=== PATIENT | male | born 1940 | race Caucasian/White ===

== ENCOUNTER 2016-12-27 13:37 | Day surgery (SDC) | payer MEDICARE ==
[~2016-12-27] VITALS: Ht 172.7 cm; Wt 82.1 kg
[2016-12-27] VITALS (9 sets, daily range): BP systolic 118–151; BP diastolic 58–66; PULSE 71–79; RESP 14–21; O2SAT 92–100
[~2016-12-27 13:37] MED LIST: CIPR-231 PO; Gentamicin Inj 400 MG in Dextrose 5% 100 ML IV SCH; HYDR-4003 PO; IBUP800T28 PO; Lactated Ringer's 1,000 ML IV SCH
[2016-12-27] MEDS ORDERED: Lidocaine PF 1% 30 mL Inj ONE (13:38)
[2016-12-27] MEDS ORDERED: fentaNYL-PF 50 mCg/mL 2 mL Inj ONE (13:38)
[2016-12-27] MEDS ORDERED: Propofol 10,000 mCg/mL 20 mL Inj ONE (13:38)
[2016-12-27] MEDS ORDERED: Lactated Ringer's 500 ML IV PRN (14:49)
[2016-12-27] MEDS ORDERED: Lactated Ringer's 1,000 ML IV SCH (14:49)
--- NOTE | 2016-12-27 14:49 | PCM.HPANE ---
Patient Data Date of Service: Dec 27, 2016 Surgeon Admitting Provider: Attending Provider:Fely Washington MD Primary Care Physician:Armando Alanis MD Other Provider:Manuel Norton Anesthesia Reason for Visit Nocturia, Left Hydronephrosis Ht/WT & BMI Height (Feet): 5 Height (Inches): 8 Weight (Kilograms): 82.1 Body Mass Index 27.00 Allergies Coded Allergies: No Known Allergies (Unverified , 12/26/16) Past Anesthesia History Anesthesia History: Denies:: Anesthesia Reactions, Fam Anesthesia Reaction, Fam Malignant Hypertherm, Malignant Hyperthermia Diabetes History Hx Diabetes?: No Current Bedside Blood Glucose: 103 MRSA MRSA: No Medications Hypertension Medication: No Home Meds Incl Beta Dena: No Reported Medications Hydrocodone-Acetaminophen 5-325 mg 1 Each Tablet1 Tablet PO Q4H PRN For Pain Ref 0 12/26/16 Ciprofloxacin (Cipro)500 Mg [id number] Mg PO BID Ref 0 12/26/16 Ibuprofen 800 Mg [id number] Mg PO TID PRN For Pain Ref 0 12/26/16 History History of ENT Problems?: Yes HEENT History: Positive for:: Cataracts (s/p extractions) Sinus Problem (SEASONAL ALLERGIES) Denture Type: None Teeth Condition: Within Normal Limits Hx of Heart Problems?: Yes Cardiovascular History: Positive for:: Edema (LE EDEMA) Denies:: Heart Murmur Hypertension Hx of Respiratory Problem?: No Respiratory History: Denies:: Use of C-PAP Machine Hx Neurologic Problems?: No Hx of GI Problems?: Yes Other GI Pertinent History: C/OF ABD PAIN & CONSTIPATION Hx of Problems?: Yes Other Pertinent History: C/OF LT FLANK PAIN,DECREASED STREAM,INFREQUENCY NOCTURIA/LT HYDRONEPHROSIS=CURRENT PROBLEM Male Hx: Positive for:: Prostate Problems (PROSTATE NODULE, ELEVATED PSA) Denies:: Scrotal Mass Testicular Surgery Skin History: Denies:: History Skin Disorders? Pressure Ulcers Hx Musculoskeletal Problems?: Yes Musculoskeletal History: Positive for:: Degenerative Joint (THUMBS) Musculoskeletal Trauma (s/p foot rpr's) Osteoarthritis Hx of Psycho/Social Problems?: No Hx Surgeries?: Yes (CATARACTS) Hx Any Other Health Problems?: Yes Other History: Positive for:: Cancer (SUSPECT PROSTATE) Denies:: Endocrine Disease Hospitalization Thyroid Disease Hx Diabetes: NoBedside Blood Glucose: 103 Hx Alcohol Use: Yes (OCCAS)Hx Substance Use: NoHave You Smoked inLast 12 mo: No Stop/Bang Treated for Sleep Apnea?: No Do You Have a CPAP Machine?: No S-Snoring: Do You Snore Loudly: No T-Tired: feel tired, fatigued: No O-Obsered: Observed not breath: No P-Blood Pressure: treated: No B- Body Mass Index > 35 kg/m2: No A- Age over 50: Yes N- Neck Large Circumference: No G- Gender Male: Yes RACIEL Total Score: 2 RACIEL Risk Assessment: Low Risk, <3 Yes Risk Assessment Category Category 1A: Patient has history of documented sleep apnea, and HAS NOT received any narcotic, sedative or anesthesia administration during this stay. Category 1B: Patient has history of documented sleep apnea, and HAS received any narcotic , sedative or anesthesia administration during this stay Category 2: Patient has SUSPECTED Obstructive Sleep Apnea, and HAS received any narcotic , sedative or anesthesia administration during this stay. Category 3: Patient has SUSPECTED Obstructive Sleep Apnea and HAS NOT received narcotic, sedative or anesthesia administration during this stay. Category 4: Outpatient in Procedural Areas with known sleep apnea or who screen positive for High Risk via the STOP/BANG questionnaire. Exam Exam Vital Signs Vital Signs Date Time Temp Pulse Resp B/P Pulse Ox O2 Delivery O2 Flow Rate FiO2 12/27/16 14:28 37.7 79 16 151/66 96 Room Air General Appearance: Alert, Oriented X3, Cooperative HEENT/AIRWAY: MP 3, Neck Movement (Full) Lungs: Clear to Auscultation, Normal Air Movement Heart: Regular Rate/Rhythm, Normal S1, Normal S2 Meds/Labs/Diagnostics Bedside Blood Glucose: 103 Plan Impression Patient chart reviewed, patient interviewed and anesthestic plan with risks, benefits, and alternatives discussed, and informed consent obtained. NPO per Anesth. Guidelines: Yes ASA Physical Status: ASA3 Severe Disease Anesthetic Plan: MAC Bene/Risks/Altern/Consents: Yes HP Complete Prior to Induction: Yes Torsten Stern MD Dec 27, 2016 14:48
[2016-12-27] MEDS ORDERED: MetoCLOpramide 5 mg/mL 2 mL Inj IVPUSH PRN (14:50)
[2016-12-27] MEDS ORDERED: HYDROmorphone 1 mg/mL Inj IVPUSH PRN (14:50)
[2016-12-27] MEDS ORDERED: Ondansetron 2 mg/mL 2 mL Inj IVPUSH PRN (14:50)
[2016-12-27] MEDS ORDERED: EPHEDrine Sulfate 50 mg/mL Inj IVPUSH PRN (14:50)
[2016-12-27] MEDS ORDERED: fentaNYL-PF 50 mCg/mL 2 mL Inj IVPUSH PRN (14:50)
[2016-12-27] MEDS ORDERED: Dexamethasone 4 mg/mL Inj IVPUSH PRN (14:50)
[2016-12-27] MEDS ORDERED: Phenylephrine 10,000 mCg/mL Inj IVPUSH PRN (14:50)
[2016-12-27] MEDS ORDERED: Lactated Ringer's 1,000 ML IV ONE (14:51)
[2016-12-27] MEDS ORDERED: oxyCODONE-Acetamin 5-325 mg Tablet PO PRN (15:55)
--- NOTE | 2016-12-27 17:01 | OP ---
[address] [address] OPERATIVE REPORT PATIENT: DEJA BARLOW : 1940 MR#: [id number] ADMIT: 12/27/2016 JOB ID: [id number] DATE OF SURGERY: 12/27/2016 PREOPERATIVE DIAGNOSIS(ES): 1. Elevated PSA. 2. Retroperitoneal lymphadenopathy. 3. Left mild hydronephrosis. POSTOPERATIVE DIAGNOSIS(ES): 1. Elevated PSA. 2. Retroperitoneal lymphadenopathy. 3. Left mild hydronephrosis. 4. Left ureterocele. PROCEDURE PERFORMED: 1. Transrectal ultrasound-guided prostate needle biopsy. 2. Cystoscopy and left retrograde pyelogram. SURGEON: Fely Washington MD. SHEAR HELPER: None. FINDINGS: 1. Firm and fixed prostate on rectal exam. 2. Heterogeneous prostate on transrectal ultrasound of the prostate. 3. Left ureterocele. ANESTHESIA: Monitored anesthesia care. ESTIMATED BLOOD LOSS: Less than 2 mL. DRAINS: None. SPECIMENS: Prostate biopsies. COMPLICATIONS: None. CONDITION: Stable. INDICATION FOR PROCEDURE: The patient is a 76-year-old gentleman who was found to have a PSA of 50. CT scan revealed retroperitoneal lymphadenopathy and mild hydronephrosis on the left side. He now presents for the aforementioned procedure. DESCRIPTION OF PROCEDURE: After informed consent was obtained, the patient was taken to the operating room. A time-out was performed identifying correct patient, surgical site, and procedure. The patient was placed under monitored anesthesia care and in the left lateral decubitus position. Transrectal ultrasound-guided prostate needle biopsy commenced after digital rectal exam was performed. The findings were aforementioned. Prostate needle biopsies were taken, one core each for the left and right, mid, apex, and base of gland. These were sent off to Pathology as prostate biopsies. The patient appeared to tolerate the procedure well and there was very little bleeding. The patient was then positioned on the operating table in the lithotomy position. All pressure points were identified and appropriately padded. His genitals were then prepped and draped in the usual sterile fashion. A 22-Gambian rigid cystoscope was applied to the patient's urethra and advanced into the bladder. The bladder was drained. The bladder was systematically inspected. Immediately upon entering the bladder there was seen a bulbous appearing lesion. Upon further inspection, this appeared to be a left ureterocele. Along the medial aspect of this mound there was a ureteral orifice. It was cannulated with a 5-Gambian open-ended Pollack catheter. A retrograde pyelogram was performed. It verified filling of the ureterocele and the ureter and kidney. There was mild hydronephrosis. It was attempted to cannulate the Pollack catheter with a Sensor-Tip wire but it could not be advanced much beyond the ureterocele. Multiple attempts even without the Pollack were unsuccessful. A Glidewire was then exchanged for the Sensor-Tip wire and this was attempted to cannulate the ureter with the Pollack and without it as well but every maneuver was not successful in order to place a stent so these efforts were abandoned. The Pollack was removed. The cystoscope was used to drain the bladder and the instruments were removed from the patient's body. The patient was then taken to the PACU in good and stable condition. VIRGINIE
--- NOTE | 2016-12-27 17:08 | PCM.ANEP1 ---
Post Anesthesia PACU Phase 1 Assessment Date of Service: Dec 27, 2016 Vital Signs Vital Signs Date Time Temp Pulse Resp B/P Pulse Ox O2 Delivery O2 Flow Rate FiO2 12/27/16 17:00 36.6 77 14 145/63 94 Room Air 12/27/16 16:00 37.1 72 20 130/64 94 Room Air 12/27/16 15:55 78 20 132/61 92 Room Air 12/27/16 15:54 73 20 131/65 93 Room Air 12/27/16 15:45 71 21 128/64 100 Simple Mask 10 12/27/16 15:40 73 18 119/62 100 Simple Mask 10 12/27/16 15:35 74 18 122/58 100 Simple Mask 10 12/27/16 15:33 37.1 77 19 118/63 100 Simple Mask 10 12/27/16 14:28 37.7 79 16 151/66 96 Room Air Anesthetic Administered: MAC Level of Alertness: Awake, talking MARTINEZ's with Equal Strength: Yes Pain: No Nausea or Vomiting: No CV Function & Hydration Stable: Yes Airway Device: Oxygen Delivery: Room Air Lungs: Normal Air Movement PACU Phase 2 Assessment Complications: No Follow up Care: No Patient Instructions Provided: N/A Torsten Stern MD Dec 27, 2016 17:08
--- NOTE | 2016-12-28 09:36 | DRSVH ---
PROCEDURE: X-RAY RETROGRADE UROGRAPHY INDICATIONS: CYSTO LEFT RETROGRADE TECHNIQUE: 1 intra-operative images acquired by the Urology service. COMPARISON: Outside Film, CT, CT ABD PELVIS W CON, 12/19/2016, 9:09. FINDINGS: Exam limited to one submitted image. Within the limits, there is a short segment distal l eft ureteral stricture measuring roughly 3-4 cm in length which appears mildly irregular. The adjace nt distal and proximal ureter appears grossly normal. No extravasation of contrast media. IMPRESSION: Short segment high-grade distal ureteral stricture which is irregular. Neoplastic strict ure cannot be excluded. Dictated by: Napoleon CHIU Interpreted: Ria Boucher MD on 12/27/2016 at 15:56 Approved by: Ria Boucher M.D. on 12/28/2016 at 9:34
--- NOTE | 2016-12-28 16:17 | PATH ---
SURGICAL PATHOLOGY Attending Physician:Fely Washington, CASE STATUS: Signed Out PATIENT NAME: DEJA BARLOW PID: [id number] : 1940 DATE COLLECTED:12/27/2016 23:48 SPECIMEN: 1: Prostate, Right Bartlett 2: Prostate, Right Mid 3: Prostate, Right Base 4: Prostate, Left Bartlett 5: Prostate, Left Mid 6: Prostate, Left Base CLINICAL HISTORY: ELEVATED PSA 1). RIGHT APEX 2). RIGHT MID 3). RIGHT BASE 4) LEFT APEX 5). LEFT MID 6). LEFT BASE FINAL DIAGNOSIS: 1.PROSTATE NEEDLE BIOPSY, RIGHT APEX: HISTOLOGIC TYPE: ADENOCARCINOMA. HISTOLOGIC GRADE: DOMO PRIMARY PATTERN: 3 WORST REMAINING PATTERN: 4 DOMO SCORE: 7 GRADE GROUP: 2 PERCENTAGE OF DOMO PATTERN 4: 50% TUMOR QUANTITATION: NUMBER OF CORES POSITIVE: 1 TOTAL NUMBER OF CORES: 2 PERCENTAGE OF PROSTATIC TISSUE INVOLVED BY TUMOR: 29% 2. PROSTATE NEEDLE BIOPSY, RIGHT MID: HISTOLOGIC TYPE: ADENOCARCINOMA HISTOLOGIC GRADE: DOMO PRIMARY PATTERN: 3 WORST REMAINING PATTERN: 5 DOMO SCORE: 8 GRADE GROUP: 4 PERCENTAGE OF ODMO PATTERN 5: 50% TUMOR QUANTITATION: NUMBER OF CORES POSITIVE: 1 TOTAL NUMBER OF CORES: 2 PERCENTAGE OF PROSTATIC TISSUE INVOLVED BY TUMOR: 45% 3.PROSTATE NEEDLE BIOPSY, RIGHT BASE: HISTOLOGIC TYPE: ADENOCARCINOMA HISTOLOGIC GRADE: DOMO PRIMARY PATTERN: 3 WORST REMAINING PATTERN: 4 DOMO SCORE: 7 GRADE GROUP: 2 PERCENTAGE OF DOMO PATTERN 4: 10% TUMOR QUANTITATION: NUMBER OF CORES POSITIVE: 1 TOTAL NUMBER OF CORES: 2 PERCENTAGE OF PROSTATIC TISSUE INVOLVED BY TUMOR: 80%. 4.PROSTATE NEEDLE BIOPSY, LEFT APEX: HISTOLOGIC TYPE: ADENOCARCINOMA HISTOLOGIC GRADE: DOMO PRIMARY PATTERN: 5 WORST REMAINING PATTERN: 5 DOMO SCORE: 10 GRADE GROUP: 5 PERCENTAGE OF DOMO PATTERN 5: 100% TUMOR QUANTITATION: NUMBER OF CORES POSITIVE: 1 TOTAL NUMBER OF CORES: 1 PERCENTAGE OF PROSTATIC TISSUE INVOLVED BY TUMOR: 64% 5.PROSTATE NEEDLE BIOPSY, LEFT MID: HISTOLOGIC TYPE: ADENOCARCINOMA HISTOLOGIC GRADE: DOMO PRIMARY PATTERN: 5 WORST REMAINING PATTERN: 5 DOMO SCORE: 10 GRADE GROUP: 5 PERCENTAGE OF DOMO PATTERN 5: 100% TUMOR QUANTITATION: NUMBER OF CORES POSITIVE: 1 TOTAL NUMBER OF CORES: 2 PERCENTAGE OF PROSTATIC TISSUE INVOLVED BY TUMOR: 63% 6.PROSTATE NEEDLE BIOPSY, LEFT BASE: HISTOLOGIC TYPE: ADENOCARCINOMA HISTOLOGIC GRADE: DOMO PRIMARY PATTERN: 5 WORST REMAINING PATTERN: 5 DOMO SCORE: 10 GRADE GROUP: 5 PERCENTAGE OF DOMO PATTERN 5: 100% TUMOR QUANTITATION: NUMBER OF CORES POSITIVE: 1 TOTAL NUMBER OF CORES: 2 PERCENTAGE OF PROSTATIC TISSUE INVOLVED BY TUMOR: 41% ICD10 code C61 NOTE: As part of a routine quality control checker, Dr. Ruben Meléndez has also reviewed this case and agrees with the diagnosis. GROSS DESCRIPTION: The specimen is received in six formalin filled containers labeled with the patient's name. 1). The specimen is sublabeled "right apex" and consists of 2 cylindrical shaped portions of tissue which aggregate to 1.1 x 0.1 x 0.1 CM. The specimen is entirely submitted in cassettes 1A. 2). The specimen is sublabeled "right mid" and consists of 2 cylindrical shaped portions of tissue which aggregate to 0.8 x 0.2 x 0.1 CM. The specimen is entirely submitted in cassette 2A. 3). The specimen is sublabeled "right base" and consists of a 0.1 CM in diameter cylinder-shaped portion of tissue which measures 1.8 CM in length the specimen is entirely submitted in cassette 3A. 4). The specimen is sublabeled "left apex" and consists of a 0.1 CM in diameter cylinder-shaped portion of tissue which measures 0.8 CM in length. The specimen is entirely submitted in cassette 4A. 5). The specimen is sublabeled "left mid" and consists of 2 cylindrical shaped portions of tissue which aggregate to 0.7 x 0.2 x 0.1 CM. The specimen is entirely submitted in cassette 5A. 6). The specimen is sublabeled "left base" and consists of 2 cylindrical shaped portions of tissue which aggregate to 0.7 x 0.2 x 0.1 CM. The specimen is entirely submitted in cassette 6A. 12/28/2016 [facility] MICRO DESCRIPTION: See diagnosis. ICD-9 CODES: CPT CODES: 1: 46759 2: 19637 3: 14382 4: 98387 5: 81457 6: 70249 Electronically Signed Out Yajaira Cartagena MD [facility] [address], [place] [address] Technical component performed at [facility], [facility] [address], [address]
== END 2016-12-27 23:59 | disposition home or self-care (01) ==
LOC: SAS 13:37
PROVIDERS: ATTEND Urology
DX: C61 Malignant neoplasm of prostate (principal); N28.89 Other specified disorders of kidney and ureter; R59.0 Localized enlarged lymph nodes; R97.20 Elevated prostate specific antigen [PSA]; N13.2 Hydronephrosis with renal and ureteral calculous obstruction; R35.1 Nocturia; Z87.891 Personal history of nicotine dependence
CPT/HCPCS: 52332; 55700; 74420; J2250; J3010; J7120; Q9967